=== PATIENT | female | born 1985 | race Caucasian/White ===

== ENCOUNTER 2023-12-26 19:18 | Outpatient (REF) | payer OTHER, SELFPAY ==
[2023-12-28 17:08] LABS: Candida species Negative (Negative); Gardnerella vaginalis Negative (Negative); Trichomonas vaginalis Negative (Negative)
[2023-12-30 20:11] LABS: Neisseria gonorrhoeae, NAA Negative (Negative)
== END 2023-12-26 19:19 | disposition home or self-care (01) ==
LOC: LAB 19:18
PROVIDERS: PCP Nurse Practitioner; Visit Provider Nurse Practitioner
DX: Z72.51 High risk heterosexual behavior (principal); Z11.3 Encounter for screening for infections with a predominantly sexual mode of transmission
CPT/HCPCS: 87480; 87491; 87510; 87591; 87660